=== PATIENT | male | born 1985 | race African-American/Black ===

== ENCOUNTER 2021-06-05 07:45 | Outpatient (CLI) | payer BC | END 2021-06-05 07:46 | disposition home or self-care (01) | LOC: BICULT 07:45 | PROVIDERS: ATTEND Family Medicine Sports Medicine | DX: N50.89 Other specified disorders of the male genital organs (principal) | CPT/HCPCS: 76870; 93976 ==

== ENCOUNTER 2022-01-18 09:05 | Outpatient (CLI) | payer BC | END 2022-01-18 09:06 | disposition home or self-care (01) | LOC: BICULT 09:05 | PROVIDERS: ATTEND Urology | DX: N44.2 Benign cyst of testis (principal); N50.3 Cyst of epididymis | CPT/HCPCS: 76870; 93976 ==